=== PATIENT | female | born 1950 | race Caucasian/White ===

== ENCOUNTER 2018-09-18 10:43 | Outpatient (CLI) | payer SELFPAY | END 2018-09-18 10:44 | disposition critical access hospital (66) | LOC: EMS 10:43 | PROVIDERS: ATTEND Surgery | DX: R10.9 Unspecified abdominal pain (principal); R11.0 Nausea | CPT/HCPCS: A0425; A0427 ==

== ENCOUNTER 2018-09-18 11:21 | Emergency (ER) | payer MEDICARE, OTHER ==
--- NOTE | 2018-09-18 11:45 | ED Physician Documentation ---
History of Present Illness - Stated complaint Stated Complaint: ABD PX - Chief complaint Chief Complaint: Abd Pain - Additonal information Additional information: hx from pt fairly limited as she does not know all her pmhx pshx or meds sates her may have a paper with that info when he gets here in any case she is visiting from [facility] for holidays has had 2 yr of abd pain etiology unclear despite imaging and colonoscopy may have divirtic s/p saulo and lap hyst ate lasagna last night today with abd pain and diarrhea which is red no fever no vomit no known bad food no sick contacts Review of Systems Constitutional: denies: Fever, Chills Cardiac: denies: Chest pain / pressure Respiratory: denies: Dyspnea GI: reports: Abdominal Pain, Diarrhea, Bloody / black stool. denies: Vomiting Endocrine: denies: Easy bruising / bleeding Immunocompromised: denies: Immunocompromised PD PAST MEDICAL HISTORY - Present Medications Home Medications: Ambulatory Orders Medication Instructions Recorded Confirmed Ascorbic Acid [Vitamin C] 1 tab ORAL DAILY 09/18/18 09/18/18 Aspirin Chewable [[place] Hilario 81 mg ORAL DAILY 09/18/18 09/18/18 Aspirin] Cholecalciferol (Vitamin D3) 2,000 unit ORAL DAILY 09/18/18 09/18/18 [Vitamin D3] DULoxetine [Cymbalta] 90 mg ORAL DAILY 09/18/18 09/18/18 Dicyclomine [Bentyl] 10 mg PO Q8H PRN #20 capsule 09/18/18 Docusate Sodium 250Mg Capsule 2 tab ORAL DAILY 09/18/18 09/18/18 [Colace 250Mg Capsule] Esomeprazole Magnesium [Nexium] 1 cap ORAL DAILY 09/18/18 09/18/18 Gabapentin 1,800 mg ORAL DAILY 09/18/18 09/18/18 Levothyroxine [Synthroid] 88 mcg ORAL DAILY 09/18/18 09/18/18 - Allergies Allergies/Adverse Reactions: Allergies Allergy/AdvReac Type Severity Reaction Status Date / Time Sulfa (Sulfonamide Allergy Unknown Verified 09/18/18 11:53 Antibiotics) PD ED PE NORMAL - Vitals Vital signs reviewed: Yes (BP high) - General General: Alert and oriented X 3, Other (litle confused - perhaps 2/2 fentanyl 200 mcg en route) - Neck Neck: Supple, no meningeal sign - Cardiac Cardiac: RRR - Respiratory Respiratory: No respiratory distress, Clear bilaterally - Abdomen Abdomen: Other (soft, no pulsatile mass, generally TTP, no focal TTP or peritoneal sx, no hernia palp ) - Rectal Rectal: 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, flaccid hemorrhoid tag, no mass, small amt yellow brown stool occult blood neg QC passed) - Derm Derm: Normal color - Neuro Neuro: Alert and oriented X 3 Results - Vitals Vitals: Vital Signs - 24 hr 09/18/18 09/18/18 11:24 13:21 Temperature 36.9 C Heart Rate 85 72 Respiratory 18 16 Rate Blood Pressure 162/95 H 135/77 H O2 Saturation 100 99 Oxygen O2 Source Room air - Labs Labs: Laboratory Tests 09/18/18 09/18/18 09/18/18 11:55 11:55 11:55 WBC 6.7 RBC 3.84 L Hgb 12.8 Hct 37.8 MCV 98.6 MCH 33.4 H MCHC 33.8 RDW 13.9 Plt Count 205 MPV 7.8 L Neut # (Auto) 5.0 Lymph # (Auto) 1.1 L Brooks # (Auto) 0.5 Eos # (Auto) 0.1 Baso # (Auto) 0.1 Absolute Nucleated RBC 0.00 Nucleated RBC % 0.0 Sodium 136 Potassium 3.6 Chloride 108 Carbon Dioxide 21 Anion Gap 7.0 BUN 16 Creatinine 0.9 Estimated GFR (MDRD) 63 L Glucose 99 Lactic Acid 1.3 Calcium 8.8 Total Bilirubin 1.1 H AST 18 ALT 19 Alkaline Phosphatase 103 Total Protein 6.5 L Albumin 3.6 Globulin 2.9 Albumin/Globulin Ratio 1.2 Lipase 23 Urine Color Urine Clarity Urine pH Ur Specific [place] Urine Protein Urine Glucose (UA) Urine Ketones Urine Occult Blood Urine Nitrite Urine Bilirubin Urine Urobilinogen Ur Leukocyte Esterase Ur Microscopic Review Urine Culture Comments 09/18/18 12:33 WBC RBC Hgb Hct MCV MCH MCHC RDW Plt Count MPV Neut # (Auto) Lymph # (Auto) Brooks # (Auto) Eos # (Auto) Baso # (Auto) Absolute Nucleated RBC Nucleated RBC % Sodium Potassium Chloride Carbon Dioxide Anion Gap BUN Creatinine Estimated GFR (MDRD) Glucose Lactic Acid Calcium Total Bilirubin AST ALT Alkaline Phosphatase Total Protein Albumin Globulin Albumin/Globulin Ratio Lipase Urine Color YELLOW Urine Clarity CLEAR Urine pH 6.0 Ur Specific [place] 1.010 Urine Protein NEGATIVE Urine Glucose (UA) NEGATIVE Urine Ketones NEGATIVE Urine Occult Blood NEGATIVE Urine Nitrite NEGATIVE Urine Bilirubin NEGATIVE Urine Urobilinogen 0.2 (NORMAL) Ur Leukocyte Esterase NEGATIVE Ur Microscopic Review NOT INDICATED Urine Culture Comments NOT INDICATED - Rads (name of study) CT AP with IV con Radiology: See rad report (no acute process, nl appendix, no diverticulitis, no per SBO AAA FF, age indet L2 comp fx (no fall or c/of back pain today)) PD MEDICAL DECISION MAKING - ED course ED course: non peritoneal exam nl labs neg UA CT with V con shows no acute process hx chronic abd pain feel safe to dc to p PMD when she gets home return if worse Departure - Departure Disposition: 01 Home, Self Care Clinical Impression: Abdominal pain Qualifiers: Abdominal location: generalized Qualified Code(s): R10.84 - Generalized abdominal pain Condition: Good Instructions: ED Abdominal Pain Unkn Cause Prescriptions: Dicyclomine [Bentyl] 10 mg PO Q8H PRN #20 capsule PRN Reason: Stomach cramps Comments: All of the tests today came back fine. The urine showed no infection or blood to suggest a kidney stone The blood work including kidney liver and pancreas function was fine. The CT scan did not show any diverticulitis - also no pancreatitis, no appendicitis, no aneurysm, no bowel infection/perforation/obstruction, no internal bleeding or free fluid. I am not sure what is causing the pain But given the extensive and reassuring workup, I do not think you need surgery or admission or antibiotics. I think it is safe for you to go home and to get any further work up as an outpatient It is very possible that over time, new or changing symptoms may develop that lead to a diagnosis not presently apparent. That is why close follow up with your PMD for a recheck is very important It doesn't sound like you are at risk for food poisoning but f the diarrhea continues you might need to have stool cultures sent You can try a medication called bentyl to ease the pains. I do not recommend any strong pain killers because I do not want to mask changing or worsening symptoms
[2018-09-18] MEDS ORDERED: SODIUM CHLORIDE 0.9% 1,000 ML IV ONE (11:47)
[2018-09-18 12:01] LABS: BASOPHILS # (AUTO) 0.1 10^3/uL (0.0-0.1); BASOPHILS % (AUTO) 0.7 %; EOSINOPHILS # (AUTO) 0.1 10^3/uL (0.0-0.7); EOSINOPHILS % (AUTO) 0.8 %; HGB - HEMOGLOBIN 12.8 g/dL (12.0-16.0); LYMPHOCYTES # (AUTO) 1.1 10^3/uL (1.5-3.5); LYMPHOCYTES % (AUTO) 16.7 %; MEAN CORPUSCULAR HEMOGLOBIN 33.4 pg (27.0-31.0); MEAN CORPUSCULAR HGB CONC 33.8 g/dL (32.0-36.0); MEAN CORPUSCULAR VOLUME 98.6 fL (81.0-99.0); MEAN PLATELET VOLUME 7.8 fL (7.9-10.8); MONOCYTES # (AUTO) 0.5 10^3/uL (0.0-1.0); MONOCYTES % (AUTO) 7.8 %; PLT - PLATELET COUNT 205 10^3/uL (130-450); RED BLOOD COUNT 3.84 10^6/uL (4.20-5.40); RED CELL DISTRIBUTION WIDTH 13.9 % (12.0-15.0); WHITE BLOOD COUNT 6.7 x10^3/uL (4.8-10.8)
[2018-09-18 12:15] LABS: ALBUMIN 3.6 g/dL (3.2-5.5); ALBUMIN/GLOBULIN RATIO 1.2 (1.0-2.2); BILIRUBIN,TOTAL 1.1 mg/dL (0.2-1.0); CALCIUM 8.8 mg/dL (8.5-10.3); CREATININE 0.9 mg/dL (0.4-1.0); TOTAL PROTEIN 6.5 g/dL (6.7-8.2)
[2018-09-18] MEDS ORDERED: ONDANSETRON 4 MG/2 ML VIAL IVP STA (12:26)
[2018-09-18] MEDS ORDERED: HYDROmorphone 1 MG/ML CARPUJECT IVP STA (12:26)
[2018-09-18] MEDS ORDERED: IOVERSOL 320 100 ML VIAL IVP ONE ×2 (12:31→17:27)
[2018-09-18 12:50] LABS: BILIRUBIN,URINE NEGATIVE (NEGATIVE); GLUCOSE, URINE (UA) NEGATIVE (NEGATIVE); KETONES,URINE (UA) NEGATIVE (NEGATIVE); LEUKOCYTE ESTERASE, URINE NEGATIVE (NEGATIVE); NITRITE,URINE NEGATIVE (NEGATIVE); OCCULT BLOOD,URINE NEGATIVE (NEGATIVE); PROTEIN,URINE NEGATIVE (NEGATIVE); UROBILINOGEN,URINE 0.2 (NORMAL) E.U./dL (NORMAL)
[2018-09-18 12:51] LABS: CLARITY,URINE CLEAR (CLEAR)
--- NOTE | 2018-09-18 13:23 | CT Report ---
Reason: abdominal pain Procedure Date: 09/18/2018 Accession Number: [id number] / [id number] Procedure: CT - Abdomen/Pelvis W/ CPT Code: FULL RESULT: EXAM: CT ABDOMEN AND PELVIS EXAM DATE: 09/18/2018 01:08 PM. CLINICAL HISTORY: Abdominal pain. COMPARISONS: None available. TECHNIQUE: Routine helical CT imaging was performed through the abdomen and pelvis. IV contrast: ISOVUE 300 90mL. Enteric contrast: No. Reconstructions: Coronal and sagittal. In accordance with CT protocol optimization, one or more of the following dose reduction techniques were utilized for this exam: automated exposure control, adjustment of mA and/or KV based on patient size, or use of iterative reconstructive technique. FINDINGS: Lung Bases: Unremarkable. Liver: Normal. No masses. Gallbladder/Bile Ducts: The gallbladder is surgically absent. There is associated ectasia of the bile ducts. Spleen: Normal. Pancreas: Normal. Adrenal Glands: Normal. Kidneys: No hydronephrosis or nephrolithiasis. Symmetric renal perfusion. Peritoneal Cavity/Bowel: Nonobstructive bowel gas pattern. No free air or free fluid. The appendix is well visualized and normal. Pelvic Organs: The bladder and visualized pelvic organs are within normal limits. Vasculature: No aneurysms or other significant abnormality. Bones: There is an age indeterminant compression fracture of the L2 vertebral body with mild to moderate retropulsion of the superior endplate into the spinal canal. There is grade 1 anterolisthesis of L5 on S1 measuring 4 mm. Degenerative disc disease at L4-L5 and L5-S1. Moderate multilevel degenerative facet arthropathy. Other: None. IMPRESSION: No evidence of acute pathology in the abdomen or pelvis to explain patient symptoms. Nonobstructive bowel gas pattern. The appendix is normal. Age indeterminant compression fracture of the L2 vertebral body, as described above. Correlation with focal tenderness on physical exam recommended. Multilevel degenerative joint and disc disease as described. RADIA
[2018-09-18 13:57] VITALS: BP 122/72
[2018-09-18] MEDS ORDERED: oxyCODONE 5 MG TABLET PO STA (14:07)
== END 2018-09-18 14:23 | disposition home or self-care (01) ==
LOC: ED 11:21
DX: R10.84 Generalized abdominal pain (principal)
CPT/HCPCS: 36415; 74177; 80053; 81003; 83605; 83690; 85025; 96361; 96374; 96375; 99284; A9270; J1170; Q9967; 81001; 87086

== ENCOUNTER 2018-09-19 13:06 | Outpatient (CLI) | payer MEDICARE, OTHER | END 2018-09-19 13:07 | disposition critical access hospital (66) | LOC: EMS 13:06 | PROVIDERS: ATTEND Surgery | DX: R55 Syncope and collapse (principal); R51 Headache | CPT/HCPCS: A0425; A0429 ==

== ENCOUNTER 2018-09-19 13:13 | Emergency (ER) | payer MEDICARE, OTHER ==
[2018-09-19 14:27] LABS: BASOPHILS % (AUTO) 0.8 %; EOSINOPHILS # (AUTO) 0.1 10^3/uL (0.0-0.7); EOSINOPHILS % (AUTO) 2.1 %; HGB - HEMOGLOBIN 12.5 g/dL (12.0-16.0); LYMPHOCYTES # (AUTO) 1.1 10^3/uL (1.5-3.5); LYMPHOCYTES % (AUTO) 19.7 %; MEAN CORPUSCULAR HEMOGLOBIN 33.7 pg (27.0-31.0); MEAN CORPUSCULAR HGB CONC 33.7 g/dL (32.0-36.0); MEAN PLATELET VOLUME 7.9 fL (7.9-10.8); MONOCYTES # (AUTO) 0.5 10^3/uL (0.0-1.0); MONOCYTES % (AUTO) 9.1 %; NEUTROPHILS # (AUTO) 3.8 10^3/uL (1.5-6.6); NEUTROPHILS % (AUTO) 68.3 %; PLT - PLATELET COUNT 212 10^3/uL (130-450); RED BLOOD COUNT 3.71 10^6/uL (4.20-5.40); RED CELL DISTRIBUTION WIDTH 13.8 % (12.0-15.0); WHITE BLOOD COUNT 5.6 x10^3/uL (4.8-10.8)
[2018-09-19 14:39] LABS: ALBUMIN 3.9 g/dL (3.2-5.5); ALBUMIN/GLOBULIN RATIO 1.5 (1.0-2.2); CALCIUM 8.7 mg/dL (8.5-10.3); CREATININE 0.9 mg/dL (0.4-1.0); TOTAL PROTEIN 6.5 g/dL (6.7-8.2)
--- NOTE | 2018-09-19 14:45 | ED Physician Documentation ---
PD HPI SYNCOPE - Stated complaint Stated Complaint: SYNCOPE - Chief complaint Chief Complaint: Neuro - History obtained from History obtained from: Patient - History of Present Illness Witnessed: Witnessed (This is a 68-year-old woman who is visiting family from [place]. She has had recurrent issues with falls over the last few months. She had neurologic workup including MRI of her head which per her report is normal. She is also had ongoing generalized abdominal pain from the pubis up to the epigastrium status post workup also in [place]. Negative findings and the presumptive diagnosis is IBS. She was seen here yesterday for an exacerbation of abdominal pain. Workup here was negative. Fell and hit left forehead this morning in a syncopal episode. She was in the family room. They do not know how long she was out, she was found in a prone position. Maybe 10 minutes. She complains of headache and worsening abdominal pain as well as left hip pain.) Review of Systems Ten Systems: 10 systems reviewed and negative Constitutional: denies: Fever, Chills GI: reports: Abdominal Pain, Nausea. denies: Vomiting, Constipation, Diarrhea : reports: Reviewed and negative PD PAST MEDICAL HISTORY - Past Medical History Past Medical History: Yes Cardiovascular: None Respiratory: None Neuro: Head injury, Migraines Endocrine/Autoimmune: None, HyPOthyroidism GI: GERD, Ulcers, Cholelithiasis, Other LEATHER GRADER: None : Kidney stones HEENT: None Psych: Depression, Anxiety Musculoskeletal: Osteoarthritis - Past Surgical History Past Surgical History: Yes General: Cholecystectomy Ortho: Other /LEATHER GRADER: Hysterectomy, Oophrectomy - Present Medications Home Medications: Ambulatory Orders Medication Instructions Recorded Confirmed Ascorbic Acid [Vitamin C] 1 tab ORAL DAILY 09/18/18 09/18/18 Aspirin Chewable [St [place]ilario 81 mg ORAL DAILY 09/18/18 09/18/18 Aspirin] Cholecalciferol (Vitamin D3) 2,000 unit ORAL DAILY 09/18/18 09/18/18 [Vitamin D3] DULoxetine [Cymbalta] 90 mg ORAL DAILY 09/18/18 09/18/18 Dicyclomine [Bentyl] 10 mg PO Q8H PRN #20 capsule 09/18/18 Docusate Sodium 250Mg Capsule 2 tab ORAL DAILY 09/18/18 09/18/18 [Colace 250Mg Capsule] Esomeprazole Magnesium [Nexium] 1 cap ORAL DAILY 09/18/18 09/18/18 Gabapentin 1,800 mg ORAL DAILY 09/18/18 09/18/18 Levothyroxine [Synthroid] 88 mcg ORAL DAILY 09/18/18 09/18/18 Acetaminophen/Cod 300/30 [Tylenol 1 each PO Q4-6H PRN #15 tablet 09/19/18 #3] - Allergies Allergies/Adverse Reactions: Allergies Allergy/AdvReac Type Severity Reaction Status Date / Time Sulfa (Sulfonamide Allergy Unknown Verified 09/18/18 11:53 Antibiotics) - Social History Does the pt smoke?: No Smoking Status: Never smoker Does the pt drink ETOH?: No Does the pt have substance abuse?: No - Immunizations Immunizations are current?: Yes - POLST Patient has POLST: No PD ED PE NORMAL - Vitals Vital signs reviewed: Yes - General General: Alert and oriented X 3, No acute distress - HEENT HEENT: PERRL, EOMI - Neck Neck: Other (Mild low C-spine tenderness) - Cardiac Cardiac: RRR, No murmur - Respiratory Respiratory: No respiratory distress, Clear bilaterally - Abdomen Abdomen: Normal bowel sounds, Soft, Non tender - Back Back: No CVA TTP, No spinal TTP - Extremities Extremities: No edema, No calf tenderness / cord, Other (Mild TTP Lat hip but no pain with int/ext rotation) - Neuro Neuro: Alert and oriented X 3, Normal speech Eye Opening: Spontaneous Motor: Obeys Commands Verbal: Oriented GCS Score: 15 - Psych Psych: Normal mood, Normal affect Results - Vitals Vitals: Vital Signs - 24 hr 09/19/18 13:15 Temperature 37.0 C Heart Rate 79 Respiratory 16 Rate Blood Pressure 150/90 H O2 Saturation 100 Oxygen O2 Source Room air - EKG (time done) 1544 Rate: Rate (enter#) (91) Rhythm: NSR Ambler: Normal Intervals: Normal MT QRS: Normal Ischemia: Normal ST segments Computer interpretation: Agree with computer - Labs Labs: Laboratory Tests 09/19/18 09/19/18 09/19/18 14:20 14:20 14:20 WBC 5.6 RBC 3.71 L Hgb 12.5 Hct 37.1 MCV 100.0 H MCH 33.7 H MCHC 33.7 RDW 13.8 Plt Count 212 MPV 7.9 Neut # (Auto) 3.8 Lymph # (Auto) 1.1 L Wallace # (Auto) 0.5 Eos # (Auto) 0.1 Baso # (Auto) 0.0 Absolute Nucleated RBC 0.00 Nucleated RBC % 0.1 Sodium 139 Potassium 3.9 Chloride 106 Carbon Dioxide 25 Anion Gap 8.0 BUN 11 Creatinine 0.9 Estimated GFR (MDRD) 63 L Glucose 94 Lactic Acid 0.7 Calcium 8.7 Total Bilirubin 1.0 AST 17 ALT 17 Alkaline Phosphatase 98 Troponin I Total Protein 6.5 L Albumin 3.9 Globulin 2.6 Albumin/Globulin Ratio 1.5 Lipase 23 Urine Color Urine Clarity Urine pH Ur Specific [place] Urine Protein Urine Glucose (UA) Urine Ketones Urine Occult Blood Urine Nitrite Urine Bilirubin Urine Urobilinogen Ur Leukocyte Esterase Ur Microscopic Review Urine Culture Comments 09/19/18 09/19/18 14:20 14:55 WBC RBC Hgb Hct MCV MCH MCHC RDW Plt Count MPV Neut # (Auto) Lymph # (Auto) Wallace # (Auto) Eos # (Auto) Baso # (Auto) Absolute Nucleated RBC Nucleated RBC % Sodium Potassium Chloride Carbon Dioxide Anion Gap BUN Creatinine Estimated GFR (MDRD) Glucose Lactic Acid Calcium Total Bilirubin AST ALT Alkaline Phosphatase Troponin I < 0.04 Total Protein Albumin Globulin Albumin/Globulin Ratio Lipase Urine Color YELLOW Urine Clarity CLEAR Urine pH 6.0 Ur Specific [place] 1.025 Urine Protein NEGATIVE Urine Glucose (UA) NEGATIVE Urine Ketones NEGATIVE Urine Occult Blood NEGATIVE Urine Nitrite NEGATIVE Urine Bilirubin NEGATIVE Urine Urobilinogen 0.2 (NORMAL) Ur Leukocyte Esterase NEGATIVE Ur Microscopic Review NOT INDICATED Urine Culture Comments NOT INDICATED - Rads (name of study) CT Head Radiology: EMP read contemporaneously (atrophy, NAD) CT Cspine Radiology: EMP read contemporaneously (no frx, DDD, thyroid nodule,. Discussed the thyroid nodule with them, they have Julian had this worked up and had a rece nt biopsy.) L hip XR Radiology: EMP read contemporaneously (NAD) PD MEDICAL DECISION MAKING - ED course ED course: 68-year-old [place] with multiple complaints including a syncopal episode today and ongoing abdominal pain. The ongoing abdominal pain seems like an old issue due to IBS and it sounds like she has had a thorough workup for that. The syncopal episode was worked up with labs which are unchanged since yesterday an EKG which is completely unremarkable. She did hit her head and hurt her neck but there were no pertinent findings there except for a thyroid nodule which has already been worked up at home. Initially she said the Dilaudid she had yesterday was not helpful, however she said the Toradol did not help at all here and then did request Dilaudid. She says Tylenol 3 will help her tomorrow to go to a that she needs to go to. Departure - Departure Disposition: Home, Self Care Clinical Impression: Abdominal pain Qualifiers: Abdominal location: generalized Qualified Code(s): R10.84 - Generalized abdominal pain Syncope Qualifiers: Syncope type: vasovagal syncope Qualified Code(s): R55 - Syncope and collapse Head injury Qualifiers: Encounter type: initial encounter Qualified Code(s): S09.90XA - Unspecified injury of head, initial encounter Neck sprain Qualifiers: Encounter type: initial encounter Qualified Code(s): S13.9XXA - Sprain of joints and ligaments of unspecified parts of neck, initial encounter Condition: Good Record reviewed to determine appropriate education?: Yes Instructions: ED Abdominal Pain Unkn Cause, ED Fainting Unkn Cause Prescriptions: Acetaminophen/Cod 300/30 [Tylenol #3] 1 each PO Q4-6H PRN #15 tablet PRN Reason: Pain Comments: Call your doctor to arrange a follow-up appointment, make the next available appointment. In the interim, return anytime if worse or if new symptoms develop. Your blood pressure was elevated today on check into the emergency department. This does not mean that you have hypertension, it is a common phenomenon to come to the emergency department and have elevated blood pressure. I recommend that you see your primary care physician within the week to have it rechecked when you are feeling better.
[2018-09-19] MEDS ORDERED: KETOROLAC 60 MG/2 ML VIAL IVP STA (14:58)
[2018-09-19] MEDS ORDERED: ONDANSETRON 4 MG/2 ML VIAL IVP STA (14:58)
[2018-09-19 15:00] LABS: BILIRUBIN,URINE NEGATIVE (NEGATIVE); GLUCOSE, URINE (UA) NEGATIVE (NEGATIVE); KETONES,URINE (UA) NEGATIVE (NEGATIVE); LEUKOCYTE ESTERASE, URINE NEGATIVE (NEGATIVE); NITRITE,URINE NEGATIVE (NEGATIVE); OCCULT BLOOD,URINE NEGATIVE (NEGATIVE); PROTEIN,URINE NEGATIVE (NEGATIVE); UROBILINOGEN,URINE 0.2 (NORMAL) E.U./dL (NORMAL)
[2018-09-19 15:01] LABS: CLARITY,URINE CLEAR (CLEAR)
--- NOTE | 2018-09-19 15:46 | XRAY Report ---
Reason: hip pain fall Procedure Date: 09/19/2018 Accession Number: [id number] / [id number] Procedure: XR - Hip w/Pelvis 2-3V LT CPT Code: FULL RESULT: EXAM: LEFT HIP AND PELVIS RADIOGRAPHY EXAM DATE: 09/19/2018 03:35 PM. HISTORY: Hip pain fall. Unwitnessed ground-level fall. Left hip pain. COMPARISONS: None. TECHNIQUE: 1 view of the pelvis and 1 view of the hip. FINDINGS: Bones: Normal. No fracture or bone lesion. Joints: The bilateral hip, pubis symphysis, and sacroiliac joints are preserved. Soft Tissues: Normal. No soft tissue swelling. IMPRESSION: Normal pelvis and hip radiography. RADIA
--- NOTE | 2018-09-19 16:19 | CT Report ---
Reason: head injury Procedure Date: 09/19/2018 Accession Number: [id number] / [id number] Procedure: CT - Head W/O CPT Code: FULL RESULT: EXAM: CT HEAD EXAM DATE: 09/19/2018 03:12 PM. CLINICAL HISTORY: Head injury. COMPARISON: None. TECHNIQUE: Multiaxial CT images were obtained from the foramen magnum to the vertex. Reformats: Sagittal and coronal. IV contrast: None. In accordance with CT protocol optimization, one or more of the following dose reduction techniques were utilized for this exam: automated exposure control, adjustment of mA and/or KV based on patient size, or use of iterative reconstructive technique. FINDINGS: Parenchyma: No intraparenchymal hemorrhage. No evidence of mass or midline shift. Arambula-white differentiation is distinct. Diffuse chronic microangiopathic white matter changes are evident. Extraaxial Spaces: Normal for age. No subdural or epidural collections identified. Ventricles: The ventricles and cortical sulci are enlarged, consistent with age-related tissue loss. Sinuses and orbits: There is a polyp versus retention cyst, 8 mm in diameter without air fluid level in the posterior medial wall of the left maxillary sinus. Imaged the remainder of the paranasal sinuses, orbits, and mastoids show no significant abnormality. Bones: No evidence of fracture or calvarial defect. Other: None. IMPRESSION: 1. Generalized age-related cortical atrophic changes without evidence of acute intracranial hemorrhage, midline shift or skull fracture. 2. Mild nonacute sinusitis in the left maxillary sinus. RADIA
--- NOTE | 2018-09-19 16:25 | CT Report ---
Reason: neck pain, syncope Procedure Date: 09/19/2018 Accession Number: [id number] / [id number] Procedure: CT - Cervical Spine W/O CPT Code: FULL RESULT: EXAM: CT CERVICAL SPINE WITHOUT CONTRAST DATE: 09/19/2018 03:12 PM. HISTORY: Neck pain, injury, syncope. COMPARISONS: None. TECHNIQUE: Thin-section axial images were acquired of the cervical spine without contrast. Post-processing: Coronal and sagittal reformats. Other: None. In accordance with CT protocol optimization, one or more of the following dose reduction techniques were utilized for this exam: automated exposure control, adjustment of mA and/or KV based on patient size, or use of iterative reconstructive technique. FINDINGS: Alignment: No scoliosis or spondylolisthesis. Bones: No fracture or bone lesion. Interspace Levels/Facets: C1-C2: Unremarkable. C2-C3: Unremarkable. C3-C4 to C6-C7: Multilevel mild/moderate degenerative disk disease without stenosis. C7-T1: Unremarkable. Musculature: No hematoma or mass. Other: The paravertebral and prevertebral soft tissues are unremarkable. There is a nodule with incomplete calcified rim in the left lobe of the thyroid, 1 cm and there is also a noncalcified nodule in the right lobe of the thyroid, 9 mm. The lung apices are clear. IMPRESSION: 1. Negative for fracture or acute posttraumatic changes in the cervical spine CT. 2. Multilevel mild/moderate degenerative disk disease without stenosis at C3-C4 to C6-C7. 3. A thyroid nodule with incomplete calcified rim in the left lobe, 1 cm and a noncalcified thyroid nodule in the right lobe, 9 mm, considering electric thyroid ultrasound follow-up. RADIA
[2018-09-19] MEDS ORDERED: HYDROmorphone 1 MG/ML CARPUJECT IVP STA (16:51)
[2018-09-19 17:29] VITALS: BP 121/64
--- NOTE | 2018-09-19 22:23 | ED Physician Documentation ---
ED Addendum - Addendum Addendum: 09/19/18 22:16- unscheduled return visit - chart accessed for follow up and educational purposes
== END 2018-09-19 17:48 | disposition home or self-care (01) ==
LOC: EDUNIT# → ED 13:13
DX: R55 Syncope and collapse (principal); S09.90XA Unspecified injury of head, initial encounter; S13.9XXA Sprain of joints and ligaments of unspecified parts of neck, initial encounter; R10.84 Generalized abdominal pain; R03.0 Elevated blood-pressure reading, without diagnosis of hypertension; W18.39XA Other fall on same level, initial encounter; Y93.89 Activity, other specified
CPT/HCPCS: 36415; 70450; 72125; 73502; 80053; 81003; 83605; 83690; 84484; 85025; 93005; 96374; 96375; 99283; 99284; J1170; 81001; 87086